=== PATIENT | female | born 1945 | race Caucasian/White ===

== ENCOUNTER 2020-04-25 13:36 | Emergency (ER) | payer BC, MEDICARE ==
[~2020-04-25 13:36] MED LIST: CATAPRES 0.1MG0.1 MG PO; COLACE 100MG C100 MG PO; RANITIDINE HCL150 M1 PO; ZOCOR40 MG PO
== END 2020-04-25 18:11 | disposition home or self-care (01) ==
LOC: ER1 13:36
DX: U07.1 COVID-19 (principal); I10 Essential (primary) hypertension; Z88.1 Allergy status to other antibiotic agents; Z88.8 Allergy status to other drugs, medicaments and biological substances
CPT/HCPCS: 93005; 99284; M0239

== ENCOUNTER 2020-04-29 11:42 | Inpatient (IN) | payer BC, MEDICARE ==
[~2020-04-29] VITALS: Ht 167.6 cm; Wt 74.8 kg
[2020-04-29 12:55] LABS: HEMOGLOBIN 14.9 gm/dl (12.3-15.3); RED BLOOD COUNT 4.86 M/UL (4.00-5.10); WHITE BLOOD COUNT 13.3 K/UL (4.5-11.0)
[2020-04-29 13:20] LABS: BUN/CREATININE RATIO 37 (0-10)
[2020-04-30] MEDS ORDERED: SERTRALINE HCL100 MG PO (00:11)
[2020-04-30] MEDS ORDERED: LISINOPRIL-HCT1 EAC1 PO (00:12)
[2020-04-30] MEDS ORDERED: OMEPRAZOLE20 MG PO (00:12)
[2020-04-30] MEDS ORDERED: ATORVASTATIN CA20 MG PO (00:13)
[2020-04-30] MEDS ORDERED: DEXAMETHASONE4 MG PO (00:18)
[2020-04-30] MEDS ORDERED: BROMPHENIR-PSE118 ML PO (00:18)
[2020-04-30] MEDS ORDERED: CELECOXIB200 MG PO (00:19)
[2020-04-30 05:16] LABS: HEMOGLOBIN 14.3 gm/dl (12.3-15.3); RED BLOOD COUNT 4.7 M/UL (4.00-5.10); WHITE BLOOD COUNT 10.1 K/UL (4.5-11.0)
[2020-04-30 05:33] LABS: BUN/CREATININE RATIO 28 (0-10)
[2020-05-01 04:17] LABS: HEMOGLOBIN 12.2 gm/dl (12.3-15.3); RED BLOOD COUNT 4.07 M/UL (4.00-5.10); WHITE BLOOD COUNT 8.4 K/UL (4.5-11.0)
[2020-05-01 04:24] LABS: BUN/CREATININE RATIO 29 (0-10)
[2020-05-02 03:07] LABS: WHITE BLOOD COUNT 9.3 K/UL (4.5-11.0)
[2020-05-02 03:13] LABS: HEMOGLOBIN 15.6 gm/dl (12.3-15.3); RED BLOOD COUNT 5.37 M/UL (4.00-5.10)
[2020-05-02 03:21] LABS: BUN/CREATININE RATIO 30 (0-10)
[2020-05-03 04:19] LABS: BUN/CREATININE RATIO 21 (0-10)
[2020-05-04 05:23] LABS: BUN/CREATININE RATIO 33 (0-10)
[2020-05-05 05:41] LABS: BUN/CREATININE RATIO 42 (0-10)
[2020-05-06 05:44] LABS: BUN/CREATININE RATIO 48 (0-10)
[2020-05-07 05:09] LABS: RED BLOOD COUNT 4.19 M/UL (4.00-5.10); WHITE BLOOD COUNT 19.5 K/UL (4.5-11.0)
[2020-05-07 05:10] LABS: HEMOGLOBIN 12.7 gm/dl (12.3-15.3)
[2020-05-07 05:50] LABS: BUN/CREATININE RATIO 63 (0-10)
[2020-05-08 04:59] LABS: BUN/CREATININE RATIO 63 (0-10)
[2020-05-08 05:06] LABS: HEMOGLOBIN 12.8 gm/dl (12.3-15.3); RED BLOOD COUNT 4.18 M/UL (4.00-5.10); WHITE BLOOD COUNT 22.5 K/UL (4.5-11.0)
[2020-05-09 05:26] LABS: HEMOGLOBIN 14.2 gm/dl (12.3-15.3); WHITE BLOOD COUNT 24.5 K/UL (4.5-11.0)
[2020-05-09 05:27] LABS: RED BLOOD COUNT 4.67 M/UL (4.00-5.10)
[2020-05-09 05:42] LABS: BUN/CREATININE RATIO 65 (0-10)
[2020-05-10 05:55] LABS: HEMOGLOBIN 13.9 gm/dl (12.3-15.3); RED BLOOD COUNT 4.59 M/UL (4.00-5.10); WHITE BLOOD COUNT 21.9 K/UL (4.5-11.0)
[2020-05-10 06:26] LABS: BUN/CREATININE RATIO 77 (0-10)
[2020-05-11 05:58] LABS: HEMOGLOBIN 13.5 gm/dl (12.3-15.3); RED BLOOD COUNT 4.44 M/UL (4.00-5.10); WHITE BLOOD COUNT 18.9 K/UL (4.5-11.0)
[2020-05-11 06:35] LABS: BUN/CREATININE RATIO 89 (0-10)
[2020-05-12 05:07] LABS: HEMOGLOBIN 12.8 gm/dl (12.3-15.3); RED BLOOD COUNT 4.25 M/UL (4.00-5.10); WHITE BLOOD COUNT 17.3 K/UL (4.5-11.0)
[2020-05-12 05:38] LABS: BUN/CREATININE RATIO 88 (0-10)
--- NOTE | 2020-05-12 09:58 | NUR ---
SPOKE WITH RAMY FARAH, DAUGHTER AND RANGE MECHANIC FOR PATIENT. INFORMED MS. FARAH THAT PATIENT HAS HAD TO HAVE FIO2 ON VENTILATOR TURNED UP TO 100% BECAUSE PATIENT BEGAN SATING 84%. PATIENT WAS TITRATED SLOWLY UP ON THE OXYGEN FIO2 TO THE 100%. SPOKE WITH DR. CASPER ABOUT PATIENT DESATING. STATED TO PUT PATIENT ON 100%. DR. CASPER STATED TO CALL FAMILY AND ASK THEM ABOUT CODE STATUS FOR THE PATIENT.
[2020-05-13 05:02] LABS: HEMOGLOBIN 12.9 gm/dl (12.3-15.3); RED BLOOD COUNT 4.31 M/UL (4.00-5.10); WHITE BLOOD COUNT 17.8 K/UL (4.5-11.0)
[2020-05-13 05:35] LABS: BUN/CREATININE RATIO 85 (0-10)
[2020-05-14 06:09] LABS: HEMOGLOBIN 12.5 gm/dl (12.3-15.3); RED BLOOD COUNT 4.11 M/UL (4.00-5.10); WHITE BLOOD COUNT 16.9 K/UL (4.5-11.0)
--- NOTE | 2020-05-14 06:20 | NUR ---
900 CC FREE WATER PER MD. APPROX 250 CC Q 6H
[2020-05-14 06:37] LABS: BUN/CREATININE RATIO 71 (0-10)
[2020-05-15 05:08] LABS: HEMOGLOBIN 11.8 gm/dl (12.3-15.3); RED BLOOD COUNT 3.95 M/UL (4.00-5.10); WHITE BLOOD COUNT 17.9 K/UL (4.5-11.0)
[2020-05-15 05:40] LABS: BUN/CREATININE RATIO 71 (0-10)
[2020-05-16 04:52] LABS: HEMOGLOBIN 11.5 gm/dl (12.3-15.3); RED BLOOD COUNT 3.8 M/UL (4.00-5.10); WHITE BLOOD COUNT 21.2 K/UL (4.5-11.0)
[2020-05-16 05:15] LABS: BUN/CREATININE RATIO 66 (0-10)
[2020-05-17 05:01] LABS: RED BLOOD COUNT 3.92 M/UL (4.00-5.10); WHITE BLOOD COUNT 19.6 K/UL (4.5-11.0)
[2020-05-17 05:23] LABS: BUN/CREATININE RATIO 71 (0-10)
[2020-05-19 04:04] LABS: HEMOGLOBIN 11.4 gm/dl (12.3-15.3); RED BLOOD COUNT 3.78 M/UL (4.00-5.10); WHITE BLOOD COUNT 17.8 K/UL (4.5-11.0)
[2020-05-19 04:42] LABS: BUN/CREATININE RATIO 91 (0-10)
[2020-05-20 03:59] LABS: HEMOGLOBIN 11.7 gm/dl (12.3-15.3); RED BLOOD COUNT 3.94 M/UL (4.00-5.10); WHITE BLOOD COUNT 16.3 K/UL (4.5-11.0)
[2020-05-20 04:20] LABS: BUN/CREATININE RATIO 86 (0-10)
== END 2020-05-21 04:29 | disposition expired | DRG 870 ==
LOC: ER1 11:42 → 2 EAST 14:16 → ZEROF 14:16 → PROG CARE 14:16 → 2 EAST 05-02 13:40
PROVIDERS: Internal Medicine; Internal Medicine Pulmonary Disease; Physician Assistant; Physician Assistant Medical; ADMIT Internal Medicine
PROC: XW033E5 Introduction of Remdesivir Anti-infective into Peripheral Vein, Percutaneous Approach, New Technology Group 5 (ICD-10-PCS; 2020-04-29)
PROC: 8E0ZXY6 Isolation (ICD-10-PCS; principal; 2020-04-30)
PROC: 5A1955Z Respiratory Ventilation, Greater than 96 Consecutive Hours (ICD-10-PCS; 2020-05-02)
PROC: 5A09357 Assistance with Respiratory Ventilation, Less than 24 Consecutive Hours, Continuous Positive Airway Pressure (ICD-10-PCS; 2020-05-02)
PROC: 0BH18EZ Insertion of Endotracheal Airway into Trachea, Via Natural or Artificial Opening Endoscopic (ICD-10-PCS; 2020-05-02)
DX: A41.81 Sepsis due to Enterococcus (principal); U07.1 COVID-19; J12.82 Pneumonia due to coronavirus disease 2019; J96.01 Acute respiratory failure with hypoxia; R65.21 Severe sepsis with septic shock; G93.40 Encephalopathy, unspecified; Z66 Do not resuscitate; Z51.5 Encounter for palliative care; I10 Essential (primary) hypertension; E78.5 Hyperlipidemia, unspecified; K21.9 Gastro-esophageal reflux disease without esophagitis; Z90.710 Acquired absence of both cervix and uterus; Z79.899 Other long term (current) drug therapy; E11.65 Type 2 diabetes mellitus with hyperglycemia; D72.829 Elevated white blood cell count, unspecified; G89.29 Other chronic pain; M54.9 Dorsalgia, unspecified; E87.70 Fluid overload, unspecified; J98.2 Interstitial emphysema; R00.0 Tachycardia, unspecified
CPT/HCPCS: ECHO; 31500; 36415; 36600; 70450; 71045; 80048; 80053; 80202; 82140; 82550; 82553; 82728; 82803; 82962; 83605; 83615; 83735; 83874; 83880; 84100; 84439; 84443; 84484; 85025; 85027; 85379; 85384; 85610; 86140; 87040; 87070; 87077; 87081; 87186; 87205; 87880; 93005; 93306; 94002; 94003; 94640; 94660; 94760; 96365; 96366; 96367; 96372; 96375; 99285; A6212; J0692; J0696; J1100; J1170; J1205; J1650; J1940; J2020; J2060; J2185; J2250; J2405; J2704; J2920; J3370; J7030; J7070; Q9967